=== PATIENT | female | born 1985 | race African-American/Black ===

== ENCOUNTER → 2017-06-16 | Outpatient (CLI) | payer MEDICAID ==
[2015-03-30 11:16] VITALS: BP 143/74
[2017-06-16 11:58] LABS: BASOPHILS # (AUTO) 0.1 X10^3/uL (0.0-0.1); BASOPHILS % (AUTO) 1.1 % (0.2-1.0); EOSINOPHILS # (AUTO) 0.2 x10^3/uL (0.0-0.2); EOSINOPHILS % (AUTO) 2.2 % (0.9-2.9); HEMATOCRIT 30.7 % (36.0-47.0); HEMOGLOBIN 9.9 g/dL (12.0-16.0); LYMPHOCYTES % (AUTO) 29.6 % (21.0-51.0); MEAN CORPUSCULAR HEMOGLOBIN 22.4 pg (27.0-34.0); MEAN CORPUSCULAR HGB CONC 32.3 g/dL (33.0-35.0); MEAN CORPUSCULAR VOLUME 69.5 fL (80.0-100.0); MEAN PLATELET VOLUME 7.8 fL (7.4-11.0); MONOCYTES # (AUTO) 0.9 x10^3/uL (0.3-0.8); MONOCYTES % (AUTO) 13.5 % (0.0-13.0); NEUTROPHILS # (AUTO) 3.7 x10^3/uL (2.2-4.8); NEUTROPHILS % (AUTO) 53.6 % (42.0-75.0); PLATELET COUNT 448 X10^3/uL (150.0-450.0); RED BLOOD COUNT 4.41 X10^6/uL (3.5-5.4); RED CELL DISTRIBUTION WIDTH 18.2 % (11.6-16.5); WHITE BLOOD COUNT 6.9 X10^3/uL (3.6-10.0)
[2017-06-16 12:14] LABS: ALANINE AMINOTRANSFERASE 86 Units/L (12-78); ALBUMIN 3.5 g/dL (3.4-5.0); ALKALINE PHOSPHATASE 92 Units/L (46-116); ASPARTATE AMINO TRANSFERASE 53 Units/L (15-37); BLOOD UREA NITROGEN 7 mg/dL (7-18); CALCIUM 8.3 mg/dL (8.5-10.1); CARBON DIOXIDE 27.8 mmol/L (21-32); CHLORIDE 104 mmol/L (98-107); CREATININE 0.81 mg/dL (0.55-1.02); GLUCOSE 87 mg/dL (65-99); SODIUM 139 mmol/L (136-145); TOTAL PROTEIN 7.4 g/dL (6.4-8.2); eGFR BLACK RACES > 60 (>60); eGFR NON BLACK RACES > 60 (>60)
[2017-06-16 12:18] LABS: HYPOCHROMASIA 1+; PLATELET MORPHOLOGY COMMENT NORMAL (NORMAL)
[2017-06-16 12:19] LABS: ANISOCYTOSIS SLIGHT; MICROCYTOSIS 1+
== END ==
LOC: LAB 11:37
PROVIDERS: ATTEND Internal Medicine Gastroenterology
DX: K21.9 Gastro-esophageal reflux disease without esophagitis (principal); R11.0 Nausea
CPT/HCPCS: 36415; 80053; 85025

== ENCOUNTER 2018-04-07 15:01 | Emergency (ER) | payer MEDICAID ==
[2018-04-07 15:10] VITALS: BP 140/92; BMI 33.4
[2018-04-07 15:41] LABS: BILIRUBIN,URINE NEGATIVE (NEGATIVE); BLOOD/HEMOGLOBIN,URINE NEGATIVE (NEGATIVE); GLUCOSE, URINE NEGATIVE (NEGATIVE); KETONES,URINE NEGATIVE (NEGATIVE); LEUKOCYTE ESTERASE ,URINE NEGATIVE (NEGATIVE); NITRITES,URINE NEGATIVE (NEGATIVE); PROTEIN,URINE NEGATIVE (NEGATIVE); UROBILINOGEN,URINE NORMAL (NORMAL)
[2018-04-07 15:43] LABS: COLOR,URINE YELLOW (YELLOW)
[2018-04-07 15:44] LABS: APPEARANCE,URINE HAZY (CLEAR)
[2018-04-07 15:45] LABS: BASOPHILS # (AUTO) 0.1 X10^3/uL (0.0-0.1); BASOPHILS % (AUTO) 1.2 % (0.2-1.0); EOSINOPHILS # (AUTO) 0.1 x10^3/uL (0.0-0.2); EOSINOPHILS % (AUTO) 1.1 % (0.9-2.9); HEMOGLOBIN 12.5 g/dL (12.0-16.0); LYMPHOCYTES # (AUTO) 1.7 X10^3/uL (1.3-2.9); LYMPHOCYTES % (AUTO) 34.6 % (21.0-51.0); MEAN CORPUSCULAR HEMOGLOBIN 26.4 pg (27.0-34.0); MEAN CORPUSCULAR HGB CONC 33.7 g/dL (33.0-35.0); MEAN CORPUSCULAR VOLUME 78.5 fL (80.0-100.0); MEAN PLATELET VOLUME 8.1 fL (7.4-11.0); MONOCYTES # (AUTO) 0.7 x10^3/uL (0.3-0.8); MONOCYTES % (AUTO) 13.8 % (0.0-13.0); NEUTROPHILS # (AUTO) 2.5 x10^3/uL (2.2-4.8); NEUTROPHILS % (AUTO) 49.3 % (42.0-75.0); PLATELET COUNT 426 X10^3/uL (150.0-450.0); RED BLOOD COUNT 4.71 X10^6/uL (3.5-5.4); RED CELL DISTRIBUTION WIDTH 14.1 % (11.6-16.5)
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
[2018-04-07 15:58] LABS: ALANINE AMINOTRANSFERASE 89 Units/L (12-78); ALBUMIN 3.6 g/dL (3.4-5.0); ALKALINE PHOSPHATASE 91 Units/L (46-116); ASPARTATE AMINO TRANSFERASE 49 Units/L (15-37); BLOOD UREA NITROGEN 4 mg/dL (7-18); CALCIUM 7.9 mg/dL (8.5-10.1); CARBON DIOXIDE 26.4 mmol/L (21-32); CHLORIDE 104 mmol/L (98-107); COR NA(FOR HYPERGLY) 139 mmol/L (136-145); CREATININE 0.75 mg/dL (0.55-1.02); SODIUM 139 mmol/L (136-145); TOTAL PROTEIN 7.2 g/dL (6.4-8.2); eGFR BLACK RACES > 60 (>60); eGFR NON BLACK RACES > 60 (>60)
[2018-04-07 16:00] LABS: BLOOD ALCOHOL < 3 mg/dL (0-19.9)
[2018-04-07 16:03] LABS: SALICYLATE < 2.8 mg/dL (2.8-20)
[2018-04-07 16:33] LABS: SERUM PREGNANCY TEST, QUAL NEGATIVE <10 mIU/mL
== END 2018-04-07 17:05 | disposition home or self-care (01) ==
LOC: ER 15:17
DX: F33.40 Major depressive disorder, recurrent, in remission, unspecified (principal); Z62.810 Personal history of physical and sexual abuse in childhood
CPT/HCPCS: 36415; 80053; 80307; 81003; 84703; 85025; 93005; 93010; 99282; 99285; G0434; G6038; G6039; G6040